=== PATIENT | female | born 1980 | race Caucasian/White ===

== ENCOUNTER → 2017-04-17 | Outpatient (CLI) | payer OTHER | LOC: BMCIMAGING 16:29 | PROVIDERS: ATTEND Family Medicine | DX: S62.398A Other fracture of other metacarpal bone, initial encounter for closed fracture (principal) ==

== ENCOUNTER → 2017-04-22 | Outpatient (CLI) | payer OTHER | LOC: BMCIMAGING 14:29 | PROVIDERS: ATTEND Orthopaedic Surgery Hand Surgery | DX: M25.532 Pain in left wrist (principal) ==

== ENCOUNTER → 2017-05-06 | Outpatient (CLI) | payer OTHER | LOC: BMCIMAGING 10:04 | PROVIDERS: ATTEND Orthopaedic Surgery Hand Surgery | DX: S62.397D Other fracture of fifth metacarpal bone, left hand, subsequent encounter for fracture with routine healing (principal) ==

== ENCOUNTER → 2017-05-20 | Outpatient (CLI) | payer OTHER | LOC: BMCIMAGING 09:21 | PROVIDERS: ATTEND Orthopaedic Surgery Hand Surgery | DX: S62.397D Other fracture of fifth metacarpal bone, left hand, subsequent encounter for fracture with routine healing (principal) ==

== ENCOUNTER → 2017-07-23 | Outpatient (CLI) | payer BC | LOC: BMCIMAGING 13:21 | PROVIDERS: ATTEND Orthopaedic Surgery Hand Surgery | DX: S52.512D Displaced fracture of left radial styloid process, subsequent encounter for closed fracture with routine healing (principal); S62.307D Unspecified fracture of fifth metacarpal bone, left hand, subsequent encounter for fracture with routine healing ==

== ENCOUNTER → 2017-08-13 | Outpatient (CLI) | payer BC | LOC: BMCIMAGING 15:29 | PROVIDERS: ATTEND Orthopaedic Surgery Hand Surgery | DX: S52.512D Displaced fracture of left radial styloid process, subsequent encounter for closed fracture with routine healing (principal) ==